=== PATIENT | female | born 2000 | race Caucasian/White ===

== ENCOUNTER 2023-02-10 14:35 | Emergency (ER) | payer MEDICAID ==
[~2023-02-10] VITALS: Ht 154.9 cm; Wt 117.0 kg
[2023-02-10] MEDS ORDERED: NAPR-56 PO (17:27)
[2023-02-10 17:38] VITALS: BP 121/88; PULSE 90; RESP 14; TEMP 98.8; O2SAT 99
== END 2023-02-10 17:51 | disposition home or self-care (01) ==
LOC: ER 14:36
DX: S80.11XA Contusion of right lower leg, initial encounter (principal); W19.XXXA Unspecified fall, initial encounter; Y93.89 Activity, other specified; Y92.89 Other specified places as the place of occurrence of the external cause; Y99.8 Other external cause status
CPT/HCPCS: 73590; 99283

== ENCOUNTER 2023-11-29 12:55 | Emergency (ER) | payer MEDICAID ==
[~2023-11-29] VITALS: Ht 152.4 cm; Wt 120.0 kg
[2023-11-29] MEDS: acetaminophen 325mg tablet PO ONE (14:40)
[2023-11-29] MEDS: HYDROcodone/acetaminophen 5mg/325mg tablet PO ONE (14:40)
[2023-11-29] MEDS ORDERED: HYDR-3965 PO (16:13)
[2023-11-29 16:24] VITALS: BP 115/79; PULSE 63; RESP 14; O2SAT 99
== END 2023-11-29 16:25 | disposition home or self-care (01) ==
LOC: ER 12:56
DX: S52.121A Displaced fracture of head of right radius, initial encounter for closed fracture (principal); S62.021A Displaced fracture of middle third of navicular [scaphoid] bone of right wrist, initial encounter for closed fracture; Z88.6 Allergy status to analgesic agent; W19.XXXA Unspecified fall, initial encounter; Y93.89 Activity, other specified; Y92.89 Other specified places as the place of occurrence of the external cause; Y99.8 Other external cause status
CPT/HCPCS: 29105; 29125; 73080; 73110; 99284; A4565; A6446; A6449